=== PATIENT | female | born 1965 | race Caucasian/White ===

== ENCOUNTER 2016-08-03 02:15 | Emergency (ER) | payer OTHER, MEDICAID ==
[2016-08-03] MEDS ORDERED: SODIUM CHLORIDE 0.9% 1,000 ML ONE (02:50)
[2016-08-03] MEDS ORDERED: LIDOCAINE/EPI 1% MDV 20 ML ONE (05:12)
== END 2016-08-03 08:46 | disposition home or self-care (01) ==
LOC: ER 02:15
DX: S01.81XA Laceration without foreign body of other part of head, initial encounter (principal); W01.0XXA Fall on same level from slipping, tripping and stumbling without subsequent striking against object, initial encounter; Y92.009 Unspecified place in unspecified non-institutional (private) residence as the place of occurrence of the external cause; F10.120 Alcohol abuse with intoxication, uncomplicated
CPT/HCPCS: 12013; 36415; 70450; 80053; 85025; 85610; 85730; 96360; 99284; G0480; 80320